=== PATIENT | female | born 1955 | race Two or more races ===

== ENCOUNTER 2023-08-11 13:12 | Inpatient (IN) | payer BC ==
[~2023-08-11] VITALS: Ht 165.1 cm; Wt 65.0 kg
[2023-08-11] MEDS ORDERED: IPRATROPIUM BROM 0.5 MG/2.5ML INH SOL HHN ONE (13:45)
[2023-08-11] MEDS ORDERED: ALBUTEROL SULF 2.5 MG/0.5ML(0.5%) NEB SOLN HHN ONE (13:45)
[2023-08-11 14:23] LABS: Basophils # (auto) 0 10 ^3/uL (0-0.2); Basophils % (auto) 0.2 % (0.0-2.0); Eosinophils # (auto) 0.2 10 ^3/uL (0-0.8); Eosinophils % (auto) 3.2 % (0.0-7.0); Hematocrit 41.5 % (36.0-46.0); Hemoglobin 13.8 g/dL (12.2-16.2); Lymphocytes # (auto) 0.8 10 ^3/uL (0.4-5.4); Lymphocytes % (auto) 15.3 % (10.0-50.0); Mean Corpuscular Hemoglobin 30.8 pg (28.0-32.0); Mean Corpuscular Hgb Conc. 33.1 g/dL (32.0-36.0); Mean Corpuscular Volume 92.9 fL (80.0-100.0); Monocytes # (auto) 0.4 10 ^3/uL (0-1.3); Monocytes % (auto) 8.2 % (0.0-12.0); Neutrophils # (auto) 3.9 10 ^3/uL (1.6-8.6); Neutrophils % (auto) 73.1 % (37.0-80.0); Red Blood Cells 4.47 10^6/uL (4.0-5.20); Red Cell Distribution Width 13.4 % (11.8-14.3); White Blood Cell 5.3 10^3/uL (4.4-10.8)
[2023-08-11 15:00] LABS: Alanine Aminotransferase 14 U/L (7-40); Albumin 4.5 g/dL (3.2-4.8); Alkaline Phosphatase 120 U/L (46-116); Anion Gap 2 (5-15); Aspartate Aminotransferase 13 U/L (13-40); BUN/Creatinine Ratio 18.6 (10.0-20.0); Blood Urea Nitrogen 13 mg/dL (9-23); Calcium 9.6 mg/dL (8.5-10.1); Carbon Dioxide 34 mmol/L (20-30); Chloride 97 mmol/L (98-107); Glucose 105 mg/dL (74-106); Potassium 4.6 mmol/L (3.5-5.1); Sodium 133 mmol/L (136-145)
[2023-08-11 15:01] LABS: Bilirubin, Total 0.2 mg/dL (0.2-1.0); Total Protein 6.5 g/dL (5.7-8.2)
[2023-08-11] MEDS: FUROSEMIDE 40 MG/4 ML VIAL IV ONE (15:10)
[2023-08-11] MEDS: methylPREDNISolone SOD SUCC 125 MG/2 ML VL IV ONE (15:12)
[2023-08-11 16:14] LABS: Magnesium 1.9 mg/dL (1.6-2.6)
[2023-08-11 16:21] LABS: COVID19 ANTIGEN SOFIA FIA NEGATIVE (NEGATIVE)
[2023-08-11] MEDS ORDERED: FURO40TA4 PO (17:40)
[2023-08-11] MEDS ORDERED: LISI10TA34 PO (17:40)
[2023-08-11] MEDS ORDERED: ATOR40TA52 PO (17:40)
[2023-08-11] MEDS: THIAMINE HCL 100 MG TAB PO ONE (17:45)
[2023-08-11] MEDS: PANTOPRAZOLE 40 MG TAB PO ONE (17:45)
[2023-08-11] MEDS ORDERED: ONDANSETRON HCL 4 MG/2 ML VIAL IV PRN (17:45)
[2023-08-11] MEDS: FOLIC ACID 1 MG TAB PO ONE (17:45)
[2023-08-11] MEDS ORDERED: MORPHINE SULFATE INJ 2 MG/ml SYRG IV PRN (17:45)
[2023-08-11] MEDS ORDERED: DOCUSATE SOD 100 MG CAP PO PRN (17:45)
[2023-08-11] MEDS: MULTIPLE VITAMIN TAB PO ONE (17:45)
[2023-08-11] MEDS ORDERED: ACETAMINOPHEN 325 MG TAB PO PRN (17:45)
[2023-08-11 18:50] VITALS: BP 111/75; TEMP 98
[2023-08-11] MEDS: LORazepam 2MG/ML-1ML VIAL IV PRN (18:55)
[2023-08-11 18:57] VITALS: PULSE 112; RESP 20; O2SAT 92
[2023-08-11] MEDS: IPRATROPIUM BROM 0.5 MG/2.5ML INH SOL NEB SCH (18:57)
[2023-08-11] MEDS: ALBUTEROL SULF 2.5 MG/0.5ML(0.5%) NEB SOLN NEB SCH (18:57)
[2023-08-11] MEDS: HYDROcodone-ACET 5/325MG TAB PO PRN (19:02)
[2023-08-11 19:07] VITALS: PULSE 111; RESP 20; O2SAT 99
[2023-08-11] MEDS ORDERED: methylPREDNISolone SOD SUCC 40 MG/ML VL IV SCH (22:00)
[2023-08-12] MEDS ORDERED: THIAMINE HCL 100 MG TAB PO SCH (10:00)
[2023-08-12] MEDS ORDERED: ENOXAPARIN SOD 40 MG/0.4 ML SYRINGE SC SCH (10:00)
[2023-08-12] MEDS ORDERED: MULTIPLE VITAMIN TAB PO SCH (10:00)
[2023-08-12] MEDS ORDERED: FUROSEMIDE 40 MG TAB PO SCH (10:00)
[2023-08-12] MEDS ORDERED: FOLIC ACID 1 MG TAB PO SCH (10:00)
[2023-08-12] MEDS ORDERED: PANTOPRAZOLE 40 MG TAB PO SCH (10:00)
[2023-08-12] MEDS ORDERED: ATORVASTATIN 20 MG TAB PO SCH (10:00)
[2023-08-12] MEDS ORDERED: LISINOPRIL 5 MG TAB PO SCH (10:00)
[2023-08-12] MEDS ORDERED: levoFLOXacin 750MG 150 ML IV SCH (18:00)
== END 2023-08-11 20:13 | disposition left against medical advice (07) | DRG 189 ==
LOC: ER 13:12 → OVERFLOW 17:40
PROVIDERS: ADMIT Nurse Practitioner Family; ATTEND Nurse Practitioner Family
DX: J96.20 Acute and chronic respiratory failure, unspecified whether with hypoxia or hypercapnia (principal); J44.1 Chronic obstructive pulmonary disease with (acute) exacerbation; F17.290 Nicotine dependence, other tobacco product, uncomplicated; Z96.642 Presence of left artificial hip joint; F15.10 Other stimulant abuse, uncomplicated; I50.9 Heart failure, unspecified; I11.0 Hypertensive heart disease with heart failure; F10.10 Alcohol abuse, uncomplicated; Z53.29 Procedure and treatment not carried out because of patient's decision for other reasons; Y90.9 Presence of alcohol in blood, level not specified; Z20.822 Contact with and (suspected) exposure to COVID-19; E78.5 Hyperlipidemia, unspecified; F41.9 Anxiety disorder, unspecified; Z83.3 Family history of diabetes mellitus; Z99.81 Dependence on supplemental oxygen; Z86.73 Personal history of transient ischemic attack (TIA), and cerebral infarction without residual deficits; Z87.01 Personal history of pneumonia (recurrent)
CPT/HCPCS: 36415; 71045; 80053; 83605; 83735; 83880; 84484; 85025; 87040; 87426; 93005; 94640; 99291; G0378

== ENCOUNTER 2023-11-12 00:06 | Emergency (ER) | payer BC, OTHER ==
[~2023-11-12] VITALS: Ht 167.6 cm; Wt 73.0 kg
[~2023-11-12 00:06] MED LIST: ATOR40TA52 PO; FURO40TA4 PO; LISI10TA34 PO
[2023-11-12 01:23] LABS: Basophils # (auto) 0 10 ^3/uL (0-0.2); Basophils % (auto) 0.5 % (0.0-2.0); Eosinophils # (auto) 0.3 10 ^3/uL (0-0.8); Eosinophils % (auto) 4.4 % (0.0-7.0); Hematocrit 36.9 % (36.0-46.0); Hemoglobin 12.5 g/dL (12.2-16.2); Lymphocytes # (auto) 1.5 10 ^3/uL (0.4-5.4); Lymphocytes % (auto) 25.7 % (10.0-50.0); Mean Corpuscular Hemoglobin 32.1 pg (28.0-32.0); Mean Corpuscular Volume 94.4 fL (80.0-100.0); Monocytes # (auto) 0.6 10 ^3/uL (0-1.3); Monocytes % (auto) 9.7 % (0.0-12.0); Neutrophils # (auto) 3.4 10 ^3/uL (1.6-8.6); Neutrophils % (auto) 59.7 % (37.0-80.0); Red Blood Cells 3.91 10^6/uL (4.0-5.20); White Blood Cell 5.7 10^3/uL (4.4-10.8)
[2023-11-12 01:38] LABS: Alanine Aminotransferase 13 U/L (7-40); Albumin 4.2 g/dL (3.2-4.8); Alkaline Phosphatase 73 U/L (46-116); Anion Gap 6 (5-15); Aspartate Aminotransferase 13 U/L (13-40); BUN/Creatinine Ratio 13.7 (10.0-20.0); Blood Urea Nitrogen 10 mg/dL (9-23); Calcium 9.8 mg/dL (8.7-10.4); Carbon Dioxide 28 mmol/L (20-30); Chloride 99 mmol/L (98-107); Glucose 115 mg/dL (74-106); Potassium 3.4 mmol/L (3.5-5.1); Sodium 133 mmol/L (136-145)
[2023-11-12 01:39] LABS: Bilirubin, Total 0.2 mg/dL (0.2-1.0); Total Protein 6.6 g/dL (5.7-8.2)
[2023-11-12 01:48] LABS: INR 0.97 (0.9-1.15); Partial Thromboplastin Time 28.7 SEC (24.5-34.5); Prothrombin Time 10.3 sec (9.3-11.8)
[2023-11-12] MEDS ORDERED: SODIENE35 RE (02:13)
[2023-11-12] MEDS ORDERED: MOMLQ PO (02:23)
[2023-11-12] MEDS ORDERED: DOCU-94 PO (02:23)
[2023-11-12 02:49] VITALS: BP 133/82; TEMP 97.8
[2023-11-12 02:51] VITALS: PULSE 80; RESP 20; O2SAT 97
== END 2023-11-12 03:04 | disposition home or self-care (01) ==
LOC: ER 00:06
DX: K59.00 Constipation, unspecified (principal); I11.0 Hypertensive heart disease with heart failure; I50.9 Heart failure, unspecified; E78.5 Hyperlipidemia, unspecified; J44.9 Chronic obstructive pulmonary disease, unspecified; F17.290 Nicotine dependence, other tobacco product, uncomplicated; Z86.73 Personal history of transient ischemic attack (TIA), and cerebral infarction without residual deficits
CPT/HCPCS: 36415; 74176; 80053; 83605; 85025; 85610; 85730; 86850; 86900; 86901; 87040

== ENCOUNTER 2024-04-30 20:56 | Emergency (ER) | payer BC, MEDICAID ==
[~2024-04-30] VITALS: Ht 165.1 cm; Wt 54.0 kg
[~2024-04-30 20:56] MED LIST changes: +DOCU-94 PO; +MOMLQ PO; +SODIENE35 RE
[2024-04-30 21:37] LABS: Basophils # (auto) 0 10 ^3/uL (0-0.2); Basophils % (auto) 0.7 % (0.0-2.0); Eosinophils # (auto) 0.2 10 ^3/uL (0-0.8); Eosinophils % (auto) 3.9 % (0.0-7.0); Hemoglobin 12.9 g/dL (12.2-16.2); Lymphocytes # (auto) 0.8 10 ^3/uL (0.4-5.4); Lymphocytes % (auto) 19.1 % (10.0-50.0); Mean Corpuscular Hemoglobin 31.5 pg (28.0-32.0); Mean Corpuscular Volume 95.5 fL (80.0-100.0); Monocytes # (auto) 0.4 10 ^3/uL (0-1.3); Monocytes % (auto) 9.9 % (0.0-12.0); Neutrophils # (auto) 2.9 10 ^3/uL (1.6-8.6); Neutrophils % (auto) 66.4 % (37.0-80.0); Platelet Count (auto) 275 10^3/uL (140-450); Red Blood Cells 4.09 10^6/uL (4.0-5.20); Red Cell Distribution Width 13.7 % (11.8-14.3); White Blood Cell 4.3 10^3/uL (4.4-10.8)
[2024-04-30 21:53] LABS: Alanine Aminotransferase 16 U/L (7-40); Albumin 4.6 g/dL (3.2-4.8); Alkaline Phosphatase 105 U/L (46-116); Anion Gap 9 (5-15); Aspartate Aminotransferase 18 U/L (13-40); BUN/Creatinine Ratio 12.5 (10.0-20.0); Blood Urea Nitrogen 10 mg/dL (9-23); Carbon Dioxide 27 mmol/L (20-31); Chloride 99 mmol/L (98-107); Potassium 3.8 mmol/L (3.5-5.1)
[2024-04-30 21:54] LABS: Total Protein 7.3 g/dL (5.7-8.2)
[2024-04-30 21:55] LABS: Bilirubin, Total 0.3 mg/dL (0.2-1.0)
[2024-04-30 21:59] LABS: Calcium 10.5 mg/dL (8.7-10.4); Glucose 110 mg/dL (74-106); Sodium 135 mmol/L (136-145)
[2024-04-30 22:19] LABS: Lipase 33 U/L (12-53)
--- NOTE | 2024-04-30 22:36 | DVH ---
Exam: XY KUB ABDOMEN SINGLE VIEW Indication: Constipation Comparison: None Technique: Single AP view of the abdomen Findings: There are bilateral intramedullary nails and dynamic hip screws in the visualized proximal femurs wit h the visualized components of the hardware are intact. There is bony demineralization. There is mult ilevel lumbar spondylosis. Mild right convexity scoliosis of the lumbar spine Scattered gas throughout nondilated small and large bowel. Moderate retained stool in the colon. Robison rgical clips project over the left abdomen. There is blunting of the right costophrenic angle Impression: 1. No evidence of bowel obstruction. 2. Moderate retained stool in the colon concordant with constipation. 3. Blunting of the right costophrenic angle which could reflect pleural scarring or pleural effusion
[2024-05-01] MEDS ORDERED: LACT10SO3 PO (02:12)
[2024-05-01] MEDS ORDERED: DOCU-94 PO (02:12)
--- NOTE | 2024-05-01 02:12 | ED.PDOC ---
GI ASSESSMENT HPI Comments This is a 68-year-old female who arrives to the ED today via EMS with complaints severe constipation for the past month. Patient states she has not had a bowel movement in at least four weeks. Patient attests to narcotic use and alcohol abuse. Patient denies any fever nausea or vomiting. Patient was tachycardic and hypertensive on arrival. Chief Complaint: Constipation Time Seen by MD: 21:02 Reviewed Notes: Nurses Notes, Tissue Specialist Notes Allergies: Coded Allergies: NO KNOWN ALLERGIES (Unverified , 08/11/23) Home Meds Active Scripts Magnesium Hydroxide (MILK OF MAGNESIA ORAL SUSPENSION) 30 Ml Ss, 30 ML PO BID for 5 Days, #300 ML Prov:ESTEPHANIA AMARO [facility] 11/12/23 Docusate Sodium (Colace) 100 Mg Cap, 1 CAP PO BID, #30 CAP Prov:ESTEPHANIA AMARO [facility] 11/12/23 Sodium Phosphates (FLEET ENEMA SIX PACK) Enema Janet, 1 EA RE DAILY, #1 EA Prov:ESTEPHANIA AMARO [facility] 11/12/23 Reported Medications Atorvastatin Calcium (ATORVASTATIN CALCIUM) 40 Mg Tab, 1 TAB PO DAILY 08/11/23 Furosemide (Furosemide) 40 Mg Tab, 1 TAB PO DAILY 08/11/23 Lisinopril (Lisinopril) 10 Mg Tab, 1 TAB PO DAILY 08/11/23 Information Source: Patient, Emergency Med Personnel Mode of Arrival: EMS Timing: Weeks Duration: Since onset Prehospital treatment: None Quality: Cramping, Sharp Severity: Moderate Recent: Other (Alcohol and narcotic drug use and abuse) Recent Hx of: Narcotic Use Pain Location: Diffuse, Epigastric, Periumbilical Associated sign and symptoms: Constipation Past Medical History PAST MEDICAL HISTORY: CHF, COPD, High Lipids, HTN, TIA Surgical History: Denies all 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 Family History Family History: Family hx of DM, Family hx of Cancer, Family hx of heart ana Social History Smoker: Other Alcohol: Heavy Drugs: Denies Drug Use Lives In: Home Constitutional: denies: chills, diaphoresis, fatigue, fever, malaise, sweats, weakness, others EENTM: denies: blurred vision, double vision, ear bleeding, ear discharge, ear drainage, ear pain, ear ringing, eye pain, eye redness, hearing loss, mouth pain, mouth swelling, nasal discharge, nose bleeding, nose congestion, nose pain, photophobia, tearing, throat pain, throat swelling, voice changes, others Respiratory: denies: cough, hemoptysis, orthopnea, SOB at rest, shortness of breath, SOB with excertion, stridor, wheezing, others Cardiovascular: denies: chest pain, dizzy spells, diaphoresis, Dyspnea on exertion, edema, irregular heart beat, left arm pain, lightheadedness, palpitations, PND, syncope, others Gastrointestinal: reports: constipated; denies: abdomen distended, abdominal pain, blood streaked bowels, diarrhea, dysphagia, difficulty swallowing, hematemesis, melena, nausea, poor appetite, poor fluid intake, rectal bleeding, rectal pain, vomiting, others Genitourinary: denies: abnormal vagina bleeding, burning, dyspareunia, dysuria, flank pain, frequency, hematuria, incontinence, pain, , vagina discharge, urgency, others Neurological: denies: dizziness, fainting, headache, left sided numbness, left sided weakness, numbness, paresthesia, pre-existing deficit, right sided numbness, right sided weakness, seizure, speech problems, tingling, tremors, weakness, others Musculoskeletal: denies: back pain, gout, joint pain, joint swelling, muscle pain, muscle stiffness, neck pain, others Integumetry: denies: bruises, change in color, change in hair/nails, dryness, laceration, lesions, lumps, rash, wounds, others Allergic/Immunocompromised: denies: Difficulty Healing, Frequent Infections, Hives, Itching, others Hematologic/Lymphatic: denies: anemia, blood clots, easy bleeding, easy bruising, swollen glands, others Endocrine: denies: excessive hunger, excessive sweating, excessive thirst, excessive urination, flushing, intolerance to cold, intolerance to heat, unexplained weight gain, unexplained weight loss, others Psychiatric: denies: anxiety, bipolar disorder, depression, hopeless, panic disorder, schizophrenia, sleepless, suicidal, others Physical Exam General Appearance: Moderate Distress (Patient is in [id number] pain due to constipation concerns, but patient is intoxicated and inebriated at time of evaluation.), Normal HEENT: Normal ENT Inspection, Pharynx Normal, TMs Normal Neck: Full Range of Motion, Non-Tender, Normal, Normal Inspection Respiratory: Chest Non-Tender, Lungs Clear, No Accessory Muscle Use, No Respiratory Distress, Normal Breath Sounds Cardiovascular: No Edema, No JVD, No Murmur, No Gallop, Normal Peripheral Pulses, Regular Rate/Rhythm Breast Exam: Deferred Gastrointestinal: Other (Diffuse periumbilical tenderness to palpation bilaterally. No pulsatile masses. Abdomen was only mildly rigid.) Genitalia: Deferred Pelvic: Deferred Rectal: Deferred Extremities: No calf tenderness, Normal capillary refill, Normal inspection, Normal range of motion, Non-tender, No pedal edema Neurologic: Alert, millwright II-XII nml as Tested, No Motor Deficits, Normal Affect, Normal Mood, No Sensory Deficits Cerebellar Function: Normal Reflexes: Normal Skin: Dry, Normal Color, Warm Lymphatic: No Adenopathy Was a procedure done? Was a procedure done?: No GI differential Dx Differential Diagnosis: Bowel Obstruction, Constipation X-Ray, Labs, Meds, VS Vital Signs Date Time Temp Pulse Resp B/P (MAP) Pulse Ox O2 Delivery O2 Flow Rate FiO2 04/30/24 21:00 91 04/30/24 21:00 98.1 102 24 161/87 (111) 97 Lab Test 04/30/24 21:20 Range/Units White Blood Count 4.3 L 4.4-10.8 10^3/uL Red Blood Count 4.09 4.0-5.20 10^6/uL Hemoglobin 12.9 12.2-16.2 g/dL Hematocrit 39.0 36.0-46.0 % Mean Corpuscular Volume 95.5 80.0-100.0 fL Mean Corpuscular Hemoglobin 31.5 28.0-32.0 pg Mean Corpuscular Hemoglobin Concent 33.0 32.0-36.0 g/dL Red Cell Distribution Width 13.7 11.8-14.3 % Platelet Count 275 140-450 10^3/uL Mean Platelet Volume 6.9 6.9-10.8 fL Neutrophils (%) (Auto) 66.4 37.0-80.0 % Lymphocytes (%) (Auto) 19.1 10.0-50.0 % Monocytes (%) (Auto) 9.9 0.0-12.0 % Eosinophils (%) (Auto) 3.9 0.0-7.0 % Basophils (%) (Auto) 0.7 0.0-2.0 % Neutrophils # (Auto) 2.9 1.6-8.6 10 ^3/uL Lymphocytes # (Auto) 0.8 0.4-5.4 10 ^3/uL Monocytes # (Auto) 0.4 0-1.3 10 ^3/uL Eosinophils # (Auto) 0.2 0-0.8 10 ^3/uL Basophils # (Auto) 0 0-0.2 10 ^3/uL Nucleated Red Blood Cells 0.0 % Sodium Level 135 L 136-145 mmol/L Potassium Level 3.8 3.5-5.1 mmol/L Chloride Level 99 98-107 mmol/L Carbon Dioxide Level 27 20-31 mmol/L Anion Gap 9 5-15 Blood Urea Nitrogen 10 9-23 mg/dL Creatinine 0.80 0.550-1.02 mg/dL Glomerular Filtration Rate Calc 80 >90 mL/min BUN/Creatinine Ratio 12.5 10.0-20.0 Serum Glucose 110 H 74-106 mg/dL Lactic Acid Level 0.8 0.4-2.0 mmol/L Calcium Level 10.5 H 8.7-10.4 mg/dL Total Bilirubin 0.3 0.2-1.0 mg/dL Aspartate Amino Transferase (AST) 18 13-40 U/L Alanine Aminotransferase (ALT) 16 7-40 U/L Alkaline Phosphatase 105 46-116 U/L Troponin I High Sensitivity < 3 L </=34 ng/L B-Type Natriuretic Peptide 34.18 0-100 pg/mL Total Protein 7.3 5.7-8.2 g/dL Albumin 4.6 3.2-4.8 g/dL Lipase 33 12-53 U/L X-Ray, Labs, Meds, VS Comment All studies performed the ED were evaluated by me personally. Imaging studies of the abdomen were unremarkable for any small bowel obstruction, but did confirm a moderate stool burden. Patient will be given lactulose until she passes copious stool and patient has been advised to utilize medication at home until she establishes a good bowel pattern. Spent 10 minutes but the patient discussing alcohol and prescription drug abuse. Advised follow up with a treatment program such as [facility] or [facility] for continued help. Time of 1ST Reevaluation: 02:10 Reevaluation 1ST: Improved Consultation: PCP, Other ([facility] and [facility]) Patient Education/Counseling: Diagnosis, Treatment Family Education/Counseling: Diagnosis, Treatment Departure 1 Departure Time of Disposition: 02:11 Impression: Primary Impression: Constipation Disposition: HOME / SELF CARE / HOMELESS Condition: Stable Additional Instructions: Advised patient utilize medication as needed as well as until she establishes a healthy bowel pattern. Patient should follow up with a alcohol and prescription dog aversion program. e-Prescriptions Docusate Sodium (Colace) 100 Mg Cap 1 CAP PO BID, #30 CAP Prov: RD BOOTH PAC 05/01/24 Lactulose (Lactulose) 10 Gm/15 Ml Shayna 10 GM PO Q6HP PRN, #200 ML Prov: RD BOOTH PAC 05/01/24 Discharged With: Self, Friend Critical Care Note Critical Care Time?: No Stability Stability form required: No Heart Score Heart Score: Heart Score Response (Comments) Value History N/A 0 EKG N/A 0 Age N/A 0 Risk Factors N/A 0 Troponin N/A [address] BOOTH PAC May 01, 2024 02:12
[2024-05-01 02:36] LABS: Urine Bacteria None Seen /hpf (None Seen)
[2024-05-01] MEDS: LACTULOSE 20Gm/30ML SOLN PO ONE (02:51)
[2024-05-01 03:26] VITALS: BP 122/60; TEMP 98.4
[2024-05-01 03:28] VITALS: PULSE 78; RESP 14; O2SAT 97
[2024-05-01 03:34] LABS: Urine Blood Negative /uL (Negative); Urine Clarity Clear (Clear); Urine Color Yellow (Yellow); Urine Mucus FEW (None Seen); Urine Protein, UAD Negative (Negative); Urine Urobilinogen Normal (Negative); Urine WBC 3 /hpf (0 - 5)
--- NOTE | 2024-05-03 14:45 | ECG ---
[facility] Test Date: 2024-04-30 Test Time: 21:00:24 Pat Name: SELWYN RAZA Department: ER Room: Gender: F Manager Of Data: ER : 1955 Requested By: RD BOOTH Order Number: [id number] Reading MD: Measurements Intervals [place] Rate: 91 P: 54 SC: 162 QRS: 51 QRSD: 96 T: 51 QT: 368 QTc: 453 Interpretive Statements Sinus rhythm Minimal ST elevation, anterior leads Baseline wander in lead(s) V5 Please click the below link to view image of tracing.
== END 2024-05-01 13:23 | disposition home or self-care (01) ==
LOC: EDBD 20:56 → ER 20:56
DX: K59.00 Constipation, unspecified (principal); I11.0 Hypertensive heart disease with heart failure; I50.9 Heart failure, unspecified; J44.9 Chronic obstructive pulmonary disease, unspecified; E78.5 Hyperlipidemia, unspecified; F17.200 Nicotine dependence, unspecified, uncomplicated; F10.10 Alcohol abuse, uncomplicated; Z86.73 Personal history of transient ischemic attack (TIA), and cerebral infarction without residual deficits; Z79.899 Other long term (current) drug therapy; Y90.0 Blood alcohol level of less than 20 mg/100 ml
CPT/HCPCS: 36415; 74018; 80053; 81001; 83605; 83690; 83880; 84484; 85025; 93005

== ENCOUNTER 2024-07-26 17:12 | Inpatient (IN) | payer MEDICARE, MEDICAID ==
[~2024-07-26] VITALS: Ht 170.2 cm; Wt 68.0 kg
[~2024-07-26 17:12] MED LIST changes: +LACT10SO3 PO
[2024-07-26 21:01] LABS: Basophils # (auto) 0 10 ^3/uL (0-0.2); Basophils % (auto) 0.7 % (0.0-2.0); Eosinophils # (auto) 0.2 10 ^3/uL (0-0.8); Eosinophils % (auto) 5.3 % (0.0-7.0); Hematocrit 37.9 % (36.0-46.0); Hemoglobin 12.8 g/dL (12.2-16.2); Lymphocytes # (auto) 1.3 10 ^3/uL (0.4-5.4); Lymphocytes % (auto) 28.1 % (10.0-50.0); Mean Corpuscular Hemoglobin 32.1 pg (28.0-32.0); Mean Corpuscular Hgb Conc. 33.9 g/dL (32.0-36.0); Mean Corpuscular Volume 94.8 fL (80.0-100.0); Monocytes # (auto) 0.5 10 ^3/uL (0-1.3); Monocytes % (auto) 10.4 % (0.0-12.0); Neutrophils # (auto) 2.6 10 ^3/uL (1.6-8.6); Neutrophils % (auto) 55.5 % (37.0-80.0); Platelet Count (auto) 245 10^3/uL (140-450); Red Cell Distribution Width 12.5 % (11.8-14.3); White Blood Cell 4.7 10^3/uL (4.4-10.8)
[2024-07-26 21:17] LABS: Alanine Aminotransferase 18 U/L (7-40); Albumin 4.6 g/dL (3.2-4.8); Alkaline Phosphatase 85 U/L (46-116); Anion Gap 9 (5-15); Aspartate Aminotransferase 21 U/L (13-40); BUN/Creatinine Ratio 14.5 (10.0-20.0); Blood Alcohol 3.1 mg/dL (<10); Blood Urea Nitrogen 11 mg/dL (9-23); Carbon Dioxide 28 mmol/L (20-31); Glucose 104 mg/dL (74-106); Total Protein 7.1 g/dL (5.7-8.2)
[2024-07-26 21:18] LABS: Bilirubin, Total 0.3 mg/dL (0.2-1.0); Chloride 97 mmol/L (98-107); Potassium 3.1 mmol/L (3.5-5.1); Salicylate < 3.0 mg/dL (-30); Sodium 134 mmol/L (136-145)
--- NOTE | 2024-07-26 21:53 | ED.PDOC ---
History of Present Illness HPI Comments 68-year-old female with a history of hypertension, dyslipidemia, CHF, COPD, GERD and neuropathy brought in by self stating she is in alcohol withdrawal and requesting help with drug and alcohol addiction. Patient states she was discharged from a hospital in [place] this morning and was slated to go to a residential rehab facility. Instead, she states I decided to come here to get some dope. She states now she is withdrawing from alcohol and currently has no place to go and is feeling depressed and hopeless. She denies feeling suicidal or homicidal. She denies any auditory or visual hallucinations. She states that she now has decided she would like to go to the residential rehab facility, however now she is feeling as if she is in alcohol and drug withdrawal, since she was unable to obtain the drugs she was looking for. Chief Complaint: General Weakness Time Seen by MD: 18:13 Primary Care Provider: NONE Reviewed Notes: Nurses Notes, Tenter Feeder Notes, Medications, Allergies Allergies: Coded Allergies: NO KNOWN ALLERGIES (Unverified , 08/11/23) Home Meds Active Scripts Docusate Sodium (Colace) 100 Mg Cap, 1 CAP PO BID, #30 CAP Prov:RD BOOTH PAC 05/01/24 Lactulose (Lactulose) 10 Gm/15 Ml Shayna, 10 GM PO Q6HP PRN, #200 ML Prov:RD BOOTH PAC 05/01/24 Magnesium Hydroxide (MILK OF MAGNESIA ORAL SUSPENSION) 30 Ml Ss, 30 ML PO BID for 5 Days, #300 ML Prov:ESTEPHANIA AMARO [facility] 11/12/23 Docusate Sodium (Colace) 100 Mg Cap, 1 CAP PO BID, #30 CAP Prov:ESTEPHANIA AMARO [facility] 11/12/23 Sodium Phosphates (FLEET ENEMA SIX PACK) Enema Janet, 1 EA RE DAILY, #1 EA Prov:ESTEPHANIA AMARO [facility] 11/12/23 Reported Medications Atorvastatin Calcium (ATORVASTATIN CALCIUM) 40 Mg Tab, 1 TAB PO DAILY 08/11/23 Furosemide (Furosemide) 40 Mg Tab, 1 TAB PO DAILY 08/11/23 Lisinopril (Lisinopril) 10 Mg Tab, 1 TAB PO DAILY 08/11/23 Information Source: Patient, Emergency Med Personnel Mode of Arrival: EMS Severity: Moderate Timing: Hours Duration: Since onset Prehospital treatment: 12 Lead EKG, Bolt Maker Past Medical History PAST MEDICAL HISTORY: Asthma, CHF, COPD, GERD, High Lipids, HTN, TIA Past Medical History (Other): neuropathy Surgical History (Other): Bilateral hip replacements, ovarian cystectomy 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, 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 Family History Family History: Family hx of DM, Family hx of Cancer, Family hx of heart ana Social History Smoker: Cigarettes, Other Alcohol: Heavy Drugs: Methamphetamine Lives In: Homeless All Other Systems: Reviewed and Negative (Comprehensive systems review obtained and negative except for what is stated in the HPI.) Physical Exam General Appearance: Mild Distress (Tearful) HEENT: PERRL/EOMI, Other (Edentulous) Neck: Full Range of Motion, Normal Inspection Respiratory: Lungs Clear, No Accessory Muscle Use, No Respiratory Distress, Normal Breath Sounds Cardiovascular: No Edema, No JVD, Regular Rate/Rhythm Breast Exam: Deferred Gastrointestinal: Non Tender, Soft Genitalia: Deferred Pelvic: Deferred Rectal: Deferred Extremities: Normal range of motion, Non-tender Neurologic: Alert (Oriented x4), Other (Depressed mood. Tearful. Tremulous. No gross focal deficit.) Cerebellar Function: NOT DONE Reflexes: NOT DONE Skin: Dry, Normal Color, Warm Lymphatic: NOT DONE Was a procedure done? Was a procedure done?: No EKG EKG : Comments Sinus rhythm, rate 88, normal WA and QRS intervals, QTC 484, normal axis, possible old anteroseptal infarct, nonspecific T change. Differential Dx Considerations may include: Alcohol withdrawal, drug withdrawal, Depression, drug/alcohol intoxication/abuse, electrolyte imbalance, among others X-Ray, Labs, Meds, VS Vital Signs Date Time Temp Pulse Resp B/P (MAP) Pulse Ox O2 Delivery O2 Flow Rate FiO2 07/26/24 17:27 98.7 110 16 119/81 (94) 97 07/26/24 17:22 88 Lab Test 07/26/24 20:45 Range/Units White Blood Count 4.7 4.4-10.8 10^3/uL Red Blood Count 4.00 4.0-5.20 10^6/uL Hemoglobin 12.8 12.2-16.2 g/dL Hematocrit 37.9 36.0-46.0 % Mean Corpuscular Volume 94.8 80.0-100.0 fL Mean Corpuscular Hemoglobin 32.1 H 28.0-32.0 pg Mean Corpuscular Hemoglobin Concent 33.9 32.0-36.0 g/dL Red Cell Distribution Width 12.5 11.8-14.3 % Platelet Count 245 140-450 10^3/uL Mean Platelet Volume 7.6 6.9-10.8 fL Neutrophils (%) (Auto) 55.5 37.0-80.0 % Lymphocytes (%) (Auto) 28.1 10.0-50.0 % Monocytes (%) (Auto) 10.4 0.0-12.0 % Eosinophils (%) (Auto) 5.3 0.0-7.0 % Basophils (%) (Auto) 0.7 0.0-2.0 % Neutrophils # (Auto) 2.6 1.6-8.6 10 ^3/uL Lymphocytes # (Auto) 1.3 0.4-5.4 10 ^3/uL Monocytes # (Auto) 0.5 0-1.3 10 ^3/uL Eosinophils # (Auto) 0.2 0-0.8 10 ^3/uL Basophils # (Auto) 0 0-0.2 10 ^3/uL Nucleated Red Blood Cells 0.0 % Sodium Level 134 L 136-145 mmol/L Potassium Level 3.1 L 3.5-5.1 mmol/L Chloride Level 97 L 98-107 mmol/L Carbon Dioxide Level 28 20-31 mmol/L Anion Gap 9 5-15 Blood Urea Nitrogen 11 9-23 mg/dL Creatinine 0.76 0.550-1.02 mg/dL Glomerular Filtration Rate Calc 85 >90 mL/min BUN/Creatinine Ratio 14.5 10.0-20.0 Serum Glucose 104 74-106 mg/dL Calcium Level 10.0 8.7-10.4 mg/dL Total Bilirubin 0.3 0.2-1.0 mg/dL Aspartate Amino Transferase (AST) 21 13-40 U/L Alanine Aminotransferase (ALT) 18 7-40 U/L Alkaline Phosphatase 85 46-116 U/L Troponin I High Sensitivity Pending B-Type Natriuretic Peptide Pending Total Protein 7.1 5.7-8.2 g/dL Albumin 4.6 3.2-4.8 g/dL Salicylates Level < 3.0 -30 mg/dL Acetaminophen Level 5.0 L 10.0-20.0 UG/ML Plasma/Serum Blood Alcohol 3.1 <10 mg/dL PROCEDURE(s): CXR1 - CHEST XRAY 1 VIEW REASON: withdrawal ORDER NUMBER(s): [id number], ACCESSION NUMBER(s): [id number] CHEST RADIOGRAPH Indication: withdrawal Technique: Single frontal view of the chest was obtained Comparison: XY CHEST XRAY 1 VIEW on DOS: 08/11/23 FINDINGS: Lines and Tubes: None Lungs: Increased tissue density right lower lung field. Unchanged from 08/11/2023. This may represent soft tissue density from the right breast. Pleura: No effusion. No pneumothorax. Cardiomediastinal contours: Unremarkable Bones: No acute osseous abnormality. IMPRESSION: 1. No significant change from 08/11/2023 X-Ray, Labs, Meds, VS Comment 68-year-old female with a history of hypertension, dyslipidemia, CHF, COPD, GERD and neuropathy brought in by self stating she is in alcohol withdrawal Vitals remarkable for heart rate 110 Exam remarkable for depressed mood, tearful, tremulous Rhythm strip independently interpreted by me: Sinus rhythm, rate 88, no ectopy. Chest x-ray IMPRESSION: 1. No significant change from 08/11/2023 CBC unremarkable, metabolic panel remarkable for sodium 134, potassium 3.1, chloride 97, Tylenol and salicylate levels negative, ETOH 3.1, UA and urine drug screen pending Patient treated with the following in the ED: Ativan 1 mg IV, Librium 50 mg p.o., effervescent potassium 50 mEq p.o. On re-evaluation, patient is no longer tremulous, vitals are stable. Plan is to admit the patient for alcohol withdrawal and eventual rehab facility placement. Time of 1ST Reevaluation: 18:43 Reevaluation 1ST: Unchanged Patient Education/Counseling: Diagnosis, Treatment Family Education/Counseling: No Family Present Departure 1 Departure Time of Disposition: 22:32 Impression: Primary Impression: Alcohol withdrawal Qualified Codes: F10.939 - Alcohol use, unspecified with withdrawal, unspecified Additional Impression: Electrolyte imbalance Disposition: ADMITTED INPATIENT Admit to: Med Surg Condition: Guarded Critical Care Note Critical Care Time?: No Stability Stability form required: No Heart Score Heart Score: Heart Score Response (Comments) Value History N/A 0 EKG N/A 0 Age N/A 0 Risk Factors N/A 0 Troponin N/A 0 Total 0 I personally scribed for BIPIN LI MD ([email or web address]) on 07/26/24 at 22:07. Electronically submitted by Jono Angeles ([email or web address]). BIPIN LI MD Jul 26, 2024 21:53
--- NOTE | 2024-07-26 22:20 | DVH ---
CHEST RADIOGRAPH Indication: withdrawal Technique: Single frontal view of the chest was obtained Comparison: XY CHEST XRAY 1 VIEW on DOS: 08/11/23 FINDINGS: Lines and Tubes: None Lungs: Increased tissue density right lower lung field. Unchanged from 08/11/2023. This may represent soft tissue density from the right breast. Pleura: No effusion. No pneumothorax. Cardiomediastinal contours: Unremarkable Bones: No acute osseous abnormality. IMPRESSION: 1. No significant change from 08/11/2023
[2024-07-26] MEDS ORDERED: MORPHINE SULFATE INJ 2 MG/ml SYRG IV PRN (23:15)
[2024-07-26] MEDS ORDERED: ACETAMINOPHEN 325 MG TAB PO PRN (23:15)
[2024-07-26] MEDS: FOLIC ACID 1 MG in D5W 5% 50 ML INJ ONE (23:15)
[2024-07-26] MEDS: SODIUM CHLORIDE 0.9% 1,000 ML IV SCH (23:15)
[2024-07-26] MEDS ORDERED: NITROGLYCERIN 0.4 MG SL TAB SL PRN (23:15)
[2024-07-26] MEDS ORDERED: LORazepam 2MG/ML-1ML VIAL IV PRN (23:15)
[2024-07-26] MEDS: THIAMINE 100mg/ml INJ (200mg/2ml VIAL) IV ONE (23:15)
--- NOTE | 2024-07-26 23:50 | DVHHPRES ---
History of Present Illness Resident Creating Document: JANES XIONG RESIDENT History of Present Illness Kaya Tran 68-year-old female with history of HTN, HLD, CHF, COPD, GERD, neuropathy, bipolar, PTSD presents to the ED with the chief complaints of alcohol withdrawal for one day. Patient was reported she has been consuming alcohol and methamphetamines for long time and dried rehabilitation several attempts but unable to quit and she recently discharged from hospital in [place] this morning and was stated to go to a residential rehab facility. But patient did not went and yesterday she had 40 oz of beers 40 and from today morning she has been having headache, anxiety, nausea, vomiting, dizziness, sweating and decided to go to ED until get some help. Patient was reported current that she has no place to go and feeling depressed and hopeless but denies associated are homicidal ideations. Patient was reported her last methamphetamine abuse was one week back. PMH: HTN, HLD, CHF, COPD, GERD, neuropathy, bipolar, PTSD PSH: Bilateral hip replacements, ovarian cystectomy Family history: Noncontributory Social history: Homeless. Heavy alcohol abuse 40 on spoke today, smoking, methamphetamine abuse Allergies: No known allergy Review of Systems Constitutional: Yes: Sweats Eyes: No: Pain, Vision change, Conjunctivae inflammation, Eyelid inflammation, Other, Redness ENT: No: Ear pain, Ear discharge, Nose pain, Nose discharge, Nose congestion, Mouth pain, Mouth swelling, Throat pain, Throat swelling, Other Respiratory: No: Cough, Dry, Shortness of breath, SOB with excertion, Wheezing, Hemoptysis, Pleuritic Pain, Sputum, Wheezing, Other Cardiovascular: Edema, Lt Headedness Gastrointestinal: Nausea, Vomiting Genitourinary: No Dysuria, No Frequency, No Incontinence, No Hematuria, No Retention, No Other Musculoskeletal: No: other, neck pain, shoulder pain, arm pain, back pain, hand pain, leg pain, foot pain Skin: No: Rash, Lesions, Jaundice, Bruising, Other Neurological: Other (tremors) Allergies: Coded Allergies: NO KNOWN ALLERGIES (Unverified , 08/11/23) Medications Current Medications Medications Dose Ordered Sig/Suzette Route Start Time Stop Time Status Last Admin Dose Admin Sodium Chloride 10 ml Q8HR IV 07/27/24 06:00 UNV Sodium Chloride 1,000 ml @ 60 mls/hr [id number] IV 07/26/24 23:15 UNV Enoxaparin Sodium 40 mg DAILY SC 07/27/24 10:00 UNV Acetaminophen 650 mg Q6HP PRN PO 07/26/24 23:15 UNV Nitroglycerin 0.4 mg Q5MINP PRN SL 07/26/24 23:15 UNV Morphine Sulfate 2 mg Q30M PRN IV 07/26/24 23:15 UNV Exam Vital Signs Vital Signs Date Time Temp Pulse Resp B/P (MAP) Pulse Ox O2 Delivery O2 Flow Rate FiO2 07/26/24 17:27 98.7 110 16 119/81 (94) 97 Exam General Appearance: Anxious, moderate distress, Cooperative HEENT: Atraumatic, Mucous membranes dry Respiratory: Clear to auscultation, Normal air movement Cardiovascular: Regular rate, Normal S1, Normal S2 Abdominal: Active bowel sounds, Soft, no distention, no tenderness Extremities: Cold right lower extremity with mild gangrenous change on greater to, but palpable pulses present, trace ble edema, Normal pulses, Skin: No Significant rash, except past surgical scars Neuro: sensorimotor deficits none Psych/Mental Status: Anxious, emotional and crying Nurse was there as sharperone during examination Labs/Xrays Labs Test 07/26/24 20:45 Range/Units White Blood Count 4.7 4.4-10.8 10^3/uL Red Blood Count 4.00 4.0-5.20 10^6/uL Hemoglobin 12.8 12.2-16.2 g/dL Hematocrit 37.9 36.0-46.0 % Mean Corpuscular Volume 94.8 80.0-100.0 fL Mean Corpuscular Hemoglobin 32.1 H 28.0-32.0 pg Mean Corpuscular Hemoglobin Concent 33.9 32.0-36.0 g/dL Red Cell Distribution Width 12.5 11.8-14.3 % Platelet Count 245 140-450 10^3/uL Mean Platelet Volume 7.6 6.9-10.8 fL Neutrophils (%) (Auto) 55.5 37.0-80.0 % Lymphocytes (%) (Auto) 28.1 10.0-50.0 % Monocytes (%) (Auto) 10.4 0.0-12.0 % Eosinophils (%) (Auto) 5.3 0.0-7.0 % Basophils (%) (Auto) 0.7 0.0-2.0 % Neutrophils # (Auto) 2.6 1.6-8.6 10 ^3/uL Lymphocytes # (Auto) 1.3 0.4-5.4 10 ^3/uL Monocytes # (Auto) 0.5 0-1.3 10 ^3/uL Eosinophils # (Auto) 0.2 0-0.8 10 ^3/uL Basophils # (Auto) 0 0-0.2 10 ^3/uL Nucleated Red Blood Cells 0.0 % Sodium Level 134 L 136-145 mmol/L Potassium Level 3.1 L 3.5-5.1 mmol/L Chloride Level 97 L 98-107 mmol/L Carbon Dioxide Level 28 20-31 mmol/L Anion Gap 9 5-15 Blood Urea Nitrogen 11 9-23 mg/dL Creatinine 0.76 0.550-1.02 mg/dL Glomerular Filtration Rate Calc 85 >90 mL/min BUN/Creatinine Ratio 14.5 10.0-20.0 Serum Glucose 104 74-106 mg/dL Calcium Level 10.0 8.7-10.4 mg/dL Total Bilirubin 0.3 0.2-1.0 mg/dL Aspartate Amino Transferase (AST) 21 13-40 U/L Alanine Aminotransferase (ALT) 18 7-40 U/L Alkaline Phosphatase 85 46-116 U/L Troponin I High Sensitivity 6 </=34 ng/L B-Type Natriuretic Peptide 20.86 0-100 pg/mL Total Protein 7.1 5.7-8.2 g/dL Albumin 4.6 3.2-4.8 g/dL Salicylates Level < 3.0 -30 mg/dL Acetaminophen Level 5.0 L 10.0-20.0 UG/ML Plasma/Serum Blood Alcohol 3.1 <10 mg/dL Assessment/Plan Assessment/Plan # acute alcohol withdrawal # alcohol abuse disorder -CIWA score 13 -Librium protocol ordered -seizures precautions -closely monitor the patient -patient needs sitter -banana bag -social director of casework services for rehabilitation # methamphetamine abuse disorder -counseled regarding cessation for more than 17 minutes -patient is willing to go rehabilitation # Hypokalemia - Repleting - Monitor lab # possible PAD -ordered arterial duplex # bipolar and PTSD -no suicidal or homicidal ideations for now -closely watch # acute vs chronic systolic VS diastolic CHF -ordered BNP and echocardiogram # COPD likely not in exacerbation # GERD - Protonix Protonix Lovenox NPO Goals of care discussed with the patient for more than 27 minutes: Full code status Case discussed with Dr. Salas, patient and Plan discussed with: Patient My Orders Orders - JANES XIONG RESIDENT Procedure Category Date Status Time Admit ADMIT 07/26/24 Transmitted 23:11 Allergies ANGÉLICA 07/26/24 In Process 23:11 Code Status CODE 07/26/24 Transmitted 23:11 Sodium Chloride Lock PHA 07/27/24 In Process (Saline Lock Ns) 06:00 Sodium Chloride 0.9% PHA 07/26/24 In Process 23:15 Enoxaparin Sodium PHA 07/27/24 In Process (Lovenox) 10:00 Complete Blood Count LAB 07/27/24 Verified 04:00 Comprehensive LAB 07/27/24 Verified Metabolic Panel 04:00 Npo (Nothing By DIET 07/27/24 Transmitted Mouth) Diet Breakfast Echo 2d Mode Cardiac US 07/26/24 Logged DOP 23:11 Condition: Fair ANGÉLICA 07/26/24 In Process 23:11 Acetaminophen Tablet PHA 07/26/24 In Process (Tylenol Tablet) 23:15 Nitroglycerin PHA 07/26/24 In Process Sublingual (Ntrostat 23:15 Morphine Sulfate PHA 07/26/24 In Process Injection 23:15 Oxygen By Nasal RT 07/26/24 Transmitted Cannula 23:11 Stat Ekg For Chest ANGÉLICA 07/26/24 In Process Pain 23:11 Notify Of Changes ANGÉLICA 07/26/24 In Process From Base 23:11 Bilat Low Ext Art US 07/26/24 Taken Duplex 23:11 Ammonia LAB 07/26/24 Logged 23:11 Covid19 Antigen Beth LAB 07/26/24 Logged Hemoglobin A1c LAB 07/26/24 In Process 23:11 Lactic Acid W/ Reflex LAB 07/26/24 Logged Order 23:11 PTPTT LAB 07/26/24 In Process 23:11 Magnesium LAB 07/26/24 In Process 23:11 Rapid Influenza A&B LAB 07/26/24 Logged 23:11 Thyroid Stimulating LAB 07/26/24 In Process Hormone 23:11 Folic Acid... PHA 07/27/24 In Process 18:00 Chlordiazepoxide Hcl PHA 07/26/24 In Process Capsule (Librium Ca 23:15 Chlordiazepoxide Hcl PHA 07/27/24 In Process Capsule (Librium Ca 10:00 Chlordiazepoxide Hcl PHA 07/28/24 In Process Capsule (Librium Ca 10:00 Chlordiazepoxide Hcl PHA 07/29/24 In Process Capsule (Librium Ca 07:00 Lorazepam 2mg/Ml Inj PHA 07/26/24 In Process (Ativan Inj) 23:15 * Environmental Field Services Technician CONS 07/26/24 Transmitted Consult Date of Service: Jul 26, 2024 Billing Provider: YOLANDE SALAS MD Common Visit Codes: 94814-[id number] INP/OBS CARE (HIGH) Secondary Visit Codes: [id number] CARE PLAN 30 MINUTES JANES XIONG RESIDENT Jul 26, 2024 23:50 YOLANDE SALAS MD Jul 27, 2024 10:15
[2024-07-26 23:57] LABS: Partial Thromboplastin Time 29.4 SEC (24.5-34.5); Prothrombin Time 10.6 sec (9.3-11.8)
--- NOTE | 2024-07-27 00:12 | DVH ---
Bilateral Lower Extremity Arterial Duplex Clinical History: Possible PAD Comparison: None Technique: Duplex Doppler evaluation including color Doppler and spectral/pulsed waveform analysis of the lower extremity arteries was performed. Findings: RIGHT: Peak systolic velocities are as follows: MIXER AND BLENDER 50 cm/s SFA proximal 74 cm/s SFA mid-portion 60 cm/s SFA distal 41 cm/s Popliteal 83 cm/s Posterior tibial 48 cm/s Anterior tibial 60 cm/s Dorsalis pedis 58 cm/s The waveforms are triphasic with diastolic flow. LEFT: Peak systolic velocities are as follows: MIXER AND BLENDER 89 cm/s SFA proximal 70 cm/s SFA mid-portion 95 cm/s SFA distal 82 cm/s Popliteal 107 cm/s Posterior tibial 86 cm/s Anterior tibial 132 cm/s Dorsalis pedis 132 cm/s The waveforms are triphasic with diastolic flow. IMPRESSION: 1. No hemodynamically significant stenosis based on peak systolic velocity criteria.
[2024-07-27 01:00] VITALS: BP 111/69; PULSE 83; RESP 15; TEMP 97.9; O2SAT 93
[2024-07-27] MEDS: POTASSIUM EFFERVESENT TAB 25 MEQ PO ONE (03:24)
[2024-07-27] MEDS: chlordiazePOXIDE HCL 25 MG CAP PO SCH ×2 (03:25→09:25)
[2024-07-27] MEDS: MULTIPLE VITAMIN TAB PO ONE ×2 (03:25→14:22)
[2024-07-27] MEDS ORDERED: LAMO100T44 PO (04:28)
[2024-07-27] MEDS ORDERED: CLON-853 PO (04:28)
[2024-07-27] MEDS ORDERED: SERT-160 PO (04:28)
[2024-07-27] MEDS ORDERED: MET50T PO (04:28)
[2024-07-27] MEDS ORDERED: METH-1181 PO (04:28)
[2024-07-27] MEDS ORDERED: APIX2.5T PO (04:28)
[2024-07-27] MEDS ORDERED: PANT40T PO (04:28)
[2024-07-27] MEDS ORDERED: [UNRECOGNIZED DRUG - CODE] PO (04:28)
[2024-07-27 05:00] VITALS: BP 92/55; PULSE 87; RESP 20; TEMP 97.8; O2SAT 95
[2024-07-27] MEDS ORDERED: MIRT-93 PO (05:49)
[2024-07-27 07:08] LABS: Basophils # (auto) 0 10 ^3/uL (0-0.2); Basophils % (auto) 0.5 % (0.0-2.0); Eosinophils # (auto) 0.2 10 ^3/uL (0-0.8); Eosinophils % (auto) 6.8 % (0.0-7.0); Hematocrit 35.3 % (36.0-46.0); Hemoglobin 11.9 g/dL (12.2-16.2); Lymphocytes # (auto) 1.1 10 ^3/uL (0.4-5.4); Lymphocytes % (auto) 32.3 % (10.0-50.0); Mean Corpuscular Hemoglobin 31.6 pg (28.0-32.0); Mean Corpuscular Hgb Conc. 33.8 g/dL (32.0-36.0); Mean Corpuscular Volume 93.4 fL (80.0-100.0); Monocytes # (auto) 0.4 10 ^3/uL (0-1.3); Monocytes % (auto) 12.8 % (0.0-12.0); Neutrophils # (auto) 1.6 10 ^3/uL (1.6-8.6); Neutrophils % (auto) 47.6 % (37.0-80.0); Platelet Count (auto) 219 10^3/uL (140-450); Red Blood Cells 3.78 10^6/uL (4.0-5.20); Red Cell Distribution Width 12.5 % (11.8-14.3); White Blood Cell 3.4 10^3/uL (4.4-10.8)
[2024-07-27 07:09] LABS: Rapid Influenza A Negative (Negative); Rapid Influenza B Negative (Negative)
[2024-07-27 07:09] LABS: Alanine Aminotransferase 15 U/L (7-40); Albumin 4.1 g/dL (3.2-4.8); Alkaline Phosphatase 73 U/L (46-116); Anion Gap 6 (5-15); Aspartate Aminotransferase 18 U/L (13-40); BUN/Creatinine Ratio 16.9 (10.0-20.0); Blood Urea Nitrogen 12 mg/dL (9-23); Chloride 99 mmol/L (98-107); Glucose 106 mg/dL (74-106); Sodium 140 mmol/L (136-145); Total Protein 6.4 g/dL (5.7-8.2)
[2024-07-27 07:10] LABS: Bilirubin, Total 0.4 mg/dL (0.2-1.0)
[2024-07-27] MEDS: SODIUM CHLOR 0.9% PF (SALINE LOCK) 10ML VIAL/SYR IV SCH (07:15)
[2024-07-27 07:20] LABS: Carbon Dioxide 35 mmol/L (20-31); Potassium 3.5 mmol/L (3.5-5.1)
--- NOTE | 2024-07-27 08:06 | ECG ---
[facility] Test Date: 2024-07-26 Test Time: 17:22:46 Pat Name: SELWYN RAZA Department: er Room: [address] [place] [address] Gender: F Direct Marketing Coordinator: susy : 1955 Requested By: EMERGENCY EMERGENCY Order Number: [id number] Reading MD: Measurements Intervals [place] Rate: 88 P: 60 AK: 163 QRS: 58 QRSD: 92 T: 54 QT: 400 QTc: 484 Interpretive Statements Sinus rhythm Please click the below link to view image of tracing.
[2024-07-27 09:00] VITALS: BP 108/66; PULSE 68; RESP 18; TEMP 97.9; O2SAT 95
[2024-07-27] MEDS: LORazepam 2MG/ML-1ML VIAL IV ONE (09:20)
[2024-07-27] MEDS: chlordiazePOXIDE HCL 25 MG CAP PO ONE (09:20)
[2024-07-27] MEDS ORDERED: APIXABAN 2.5 MG TAB PO SCH (10:00)
[2024-07-27] MEDS ORDERED: FLUT1AER3 PO (10:32)
[2024-07-27] MEDS: METOPROLOL TARTRATE 50 MG TAB PO SCH (11:06)
[2024-07-27] MEDS: FUROSEMIDE 40 MG TAB PO SCH (11:06)
[2024-07-27] MEDS: METHOCARBAMOL 500 MG TAB PO PRN (11:06)
[2024-07-27] MEDS: ENOXAPARIN SOD 40 MG/0.4 ML SYRINGE SC SCH (11:06)
[2024-07-27 12:49] VITALS: BP 91/69; PULSE 76; RESP 16; TEMP 98.5; O2SAT 96
[2024-07-27] MEDS: LORazepam 0.5 MG TAB PO PRN (13:23)
[2024-07-27] MEDS: FOLIC ACID 1 MG TAB PO ONE (14:21)
[2024-07-27] MEDS: D5W/SOD CHL 0.45% 500 ML IV ONE (14:21)
[2024-07-27] MEDS: THIAMINE HCL 100 MG TAB PO ONE (14:22)
[2024-07-27] MEDS: MAGNESIUM OXIDE 400 MG TAB PO ONE (14:22)
[2024-07-27] MEDS ORDERED: FOLIC ACID 1 MG, MULTIPLE VITAMIN 10 ML, MAGNESIUM SULF SDV 50% 8 MEQ, THIAMINE INJ 100... INJ SCH (18:00)
--- NOTE | 2024-07-27 19:19 | DVHDSRES ---
Discharge Summary Date of Admission Resident Creating Document: JANES XIONG RESIDENT Jul 26, 2024 at 23:11 Date of Discharge: Jul 27, 2024 Admitting Diagnosis Alcohol withdrawal Labs/Diagnostic Data: Laboratory Results Test 07/27/24 06:34 07/27/24 00:20 07/27/24 00:00 07/26/24 20:45 White Blood Count 3.4 10^3/uL (4.4-10.8) Red Blood Count 3.78 10^6/uL (4.0-5.20) Hemoglobin 11.9 g/dL (12.2-16.2) Hematocrit 35.3 % (36.0-46.0) Mean Corpuscular Volume 93.4 fL (80.0-100.0) Mean Corpuscular Hemoglobin 31.6 pg (28.0-32.0) Mean Corpuscular Hemoglobin Concent 33.8 g/dL (32.0-36.0) Red Cell Distribution Width 12.5 % (11.8-14.3) Platelet Count 219 10^3/uL (140-450) Mean Platelet Volume 7.5 fL (6.9-10.8) Neutrophils (%) (Auto) 47.6 % (37.0-80.0) Lymphocytes (%) (Auto) 32.3 % (10.0-50.0) Monocytes (%) (Auto) 12.8 % (0.0-12.0) Eosinophils (%) (Auto) 6.8 % (0.0-7.0) Basophils (%) (Auto) 0.5 % (0.0-2.0) Neutrophils # (Auto) 1.6 10 ^3/uL (1.6-8.6) Lymphocytes # (Auto) 1.1 10 ^3/uL (0.4-5.4) Monocytes # (Auto) 0.4 10 ^3/uL (0-1.3) Eosinophils # (Auto) 0.2 10 ^3/uL (0-0.8) Basophils # (Auto) 0 10 ^3/uL (0-0.2) Nucleated Red Blood Cells 0.0 % Sodium Level 140 mmol/L (136-145) Potassium Level 3.5 mmol/L (3.5-5.1) Chloride Level 99 mmol/L (98-107) Carbon Dioxide Level 35 mmol/L (20-31) Anion Gap 6 (5-15) Blood Urea Nitrogen 12 mg/dL (9-23) Creatinine 0.71 mg/dL (0.550-1.02) Glomerular Filtration Rate Calc 93 mL/min (>90) BUN/Creatinine Ratio 16.9 (10.0-20.0) Serum Glucose 106 mg/dL (74-106) Calcium Level 10.0 mg/dL (8.7-10.4) Total Bilirubin 0.4 mg/dL (0.2-1.0) Aspartate Amino Transferase (AST) 18 U/L (13-40) Alanine Aminotransferase (ALT) 15 U/L (7-40) Alkaline Phosphatase 73 U/L (46-116) Total Protein 6.4 g/dL (5.7-8.2) Albumin 4.1 g/dL (3.2-4.8) Lactic Acid Level 1.3 mmol/L (0.4-2.0) Ammonia < 10 umol/L (11-32) Influenza Type A Antigen Negative (Negative) Influenza Type B Antigen Negative (Negative) Prothrombin Time 10.6 sec (9.3-11.8) Prothrombin Time INR 1.00 (0.9-1.15) Activated Partial Thromboplast Time 29.4 SEC (24.5-34.5) Hemoglobin A1c 5.7 % A1C (<5.7) Magnesium Level 1.9 mg/dL (1.6-2.6) Troponin I High Sensitivity 6 ng/L (</=34) B-Type Natriuretic Peptide 20.86 pg/mL (0-100) Thyroid Stimulating Hormone (TSH) 1.87 uIU/mL (0.55-4.78) Salicylates Level < 3.0 mg/dL (-30) Acetaminophen Level 5.0 UG/ML (10.0-20.0) Plasma/Serum Blood Alcohol 3.1 mg/dL (<10) Other Laboratory Tests 07/27/24 06:34 Brief Hx & Hospital Course: HPI- Marc Kaya 68-year-old female with history of HTN, HLD, CHF, COPD, GERD, neuropathy, bipolar, PTSD presents to the ED with the chief complaints of alcohol withdrawal for one day. Patient was reported she has been consuming alcohol and methamphetamines for long time and dried rehabilitation several attempts but unable to quit and she recently discharged from hospital in [place] this morning and was stated to go to a residential rehab facility. But patient did not went and yesterday she had 40 oz of beers 40 and from today morning she has been having headache, anxiety, nausea, vomiting, dizziness, sweating and decided to go to ED until get some help. Patient was reported current that she has no place to go and feeling depressed and hopeless but denies associated are homicidal ideations. Patient was reported her last methamphetamine abuse was one week back. Hospital course-patient came to the hospital due to symptoms of acute alcohol withdrawal like headache, anxiety, vomiting, dizziness, sweating. Patient was admitted to the hospital due to acute alcohol withdrawal. Initial lab workup revealed a potassium 3.1, patient was treated conservatively and was following CIWA protocol. Patient left AMA even after explaining the risk of leaving AMA including life-threatening situation. Patient's condition was undetermined on discharge. Diagnosis- # acute alcohol withdrawal # alcohol abuse disorder # methamphetamine abuse disorder # Hypokalemia replenished # possible PAD-ruled out # bipolar and PTSD # acute vs chronic systolic VS diastolic CHF # COPD likely not in exacerbation # GERD Discharge pain- Patient lives AMA Operations or Procedures [place] [address] Ph: [phone] DIAGNOSTIC IMAGING Diagnostic Imaging Report : [id number] Signed PATIENT: KAYA RAZA ACCT: [id number] UNIT: [id number] : 1955 LOC: OVERFLOW ROOM / BED: [address] [place] [address] / AGE / SEX: 68 / F ADM STATUS: ADM IN SERVICE 2311 ORDERING PHYSICIAN: JANES XIONG RESIDENT PROCEDURE(s): BLEAD - BiLat Low Ext Art Duplex REASON: Possible PAD ORDER NUMBER(s): [id number], ACCESSION NUMBER(s): [id number] Bilateral Lower Extremity Arterial Duplex Clinical History: Possible PAD Comparison: None Technique: Duplex Doppler evaluation including color Doppler and spectral/pulsed waveform analysis of the lower extremity arteries was performed. Findings: RIGHT: Peak systolic velocities are as follows: PRIVATE DUTY AIDE 50 cm/s SFA proximal 74 cm/s SFA mid-portion 60 cm/s SFA distal 41 cm/s Popliteal 83 cm/s Posterior tibial 48 cm/s Anterior tibial 60 cm/s Dorsalis pedis 58 cm/s The waveforms are triphasic with diastolic flow. LEFT: Peak systolic velocities are as follows: PRIVATE DUTY AIDE 89 cm/s SFA proximal 70 cm/s SFA mid-portion 95 cm/s SFA distal 82 cm/s Popliteal 107 cm/s Posterior tibial 86 cm/s Anterior tibial 132 cm/s Dorsalis pedis 132 cm/s The waveforms are triphasic with diastolic flow. IMPRESSION: 1. No hemodynamically significant stenosis based on peak systolic velocity criteria. ATED BY: JOSEPHINE PEÑA MD DICTATED DATE/TIME: 07/27/248 SIGNED BY: JOSEPHINE PEÑA MD SIGNED DATE/TIME: 07/27/248 CC: [place] [address] Ph: [phone] DIAGNOSTIC IMAGING Diagnostic Imaging Report : [id number] Signed PATIENT: KAYA RAZA ACCT: [id number] UNIT: [id number] : 1955 LOC: ER ROOM / BED: / AGE / SEX: 68 / F ADM STATUS: REG ER SERVICE 49 ORDERING PHYSICIAN: BIPIN LI MD PROCEDURE(s): CXR1 - CHEST XRAY 1 VIEW REASON: withdrawal ORDER NUMBER(s): [id number], ACCESSION NUMBER(s): [id number] CHEST RADIOGRAPH Indication: withdrawal Technique: Single frontal view of the chest was obtained Comparison: XY CHEST XRAY 1 VIEW on DOS: 08/11/23 FINDINGS: Lines and Tubes: None Lungs: Increased tissue density right lower lung field. Unchanged from 08/11/2023. This may represent soft tissue density from the right breast. Pleura: No effusion. No pneumothorax. Cardiomediastinal contours: Unremarkable Bones: No acute osseous abnormality. IMPRESSION: 1. No significant change from 08/11/2023 ATED BY: ANTONIA FLOWERS Jr., DO DICTATED DATE/TIME: 07/26/242216 SIGNED BY: ANTONIA FLOWERS Jr., DO SIGNED DATE/TIME: 07/26/24 [id number] CC: Condition at Discharge: Undetermined Final Diagnosis/Problems List # acute alcohol withdrawal # alcohol abuse disorder # methamphetamine abuse disorder # Hypokalemia replenished # possible PAD-ruled out # bipolar and PTSD # acute vs chronic systolic VS diastolic CHF # COPD likely not in exacerbation # GERD Discharge Disposition: AMA Discharge Statement: "Patient was advised to return to the ER or call 911 if any headaches, dizziness, shortness of breath, chest pain, abdominal pain, bleeding, fevers, or worsening of medical condition. Patient was counseled about treatment plan, medications, possible side effects, patientverbalized understanding. All questions were answered to the best of my ability. This discharge took greater then 30 minutes in planning, reviewing documentation, counseling the patient, and discussing with other team members." ASSESSMENT ASSESSMENT Assessment МАРИНА TRINIDAD RESIDENT Jul 27, 2024 19:19
[2024-07-28] MEDS ORDERED: THIAMINE HCL 100 MG TAB PO SCH (10:00)
[2024-07-28] MEDS ORDERED: lamoTRIgine 100 MG TAB PO SCH (10:00)
[2024-07-28] MEDS ORDERED: chlordiazePOXIDE HCL 25 MG CAP PO SCH (10:00)
[2024-07-28] MEDS ORDERED: MULTIPLE VITAMIN TAB PO SCH (10:00)
[2024-07-28] MEDS ORDERED: FOLIC ACID 1 MG TAB PO SCH (10:00)
[2024-07-28] MEDS ORDERED: PANTOPRAZOLE 40 MG TAB PO SCH (10:00)
[2024-07-28] MEDS ORDERED: MAGNESIUM OXIDE 400 MG TAB PO SCH (10:00)
--- NOTE | 2024-07-28 12:27 | DVHSR ---
APPROVED REPORT EXAM: Two-dimensional and M-mode echocardiogram with Doppler and color Doppler. Blood Pressure: 92/55 mmHg INDICATION ?CHF exacerbation RISK FACTORS Height: 5'7", Weight: 149 DIMENSIONS LVDd (3.8-5.7cm)LA (2D)4.0 (1.9-4.0cm)Aortic Root3.3 (2.0-3.7cm) LVDs (2.5-4.0cm)LA (MM) (1.9-4.0cm)Aortic Cusp Exc2.0 (1.5-2.0cm) EF (%) 56.0 (55-70%)Rt. Atrium3.7 (1.9-4.0cm)Asc. Aorta cm IVSd (0.7-1.1cm)RV (D)3.4 (1.8-2.4cm) Mitral Valve MitralMitral Stenosis E wave0.61m/sMV Mean GR.mmHg A wave0.60m/sMV Peak GR.mmHg E/A ratio1.02D MVAcm2 DECEL [id number] 1/2 Timems Aortic Valve Aortic ValveAortic Stenosis V10.87m/Shade Mean GR.4mmHg V21.21m/Shade Peak GR.6mmHg LVOT Diameter2.1 (1.8-2.4cm)Doppler AVA2.49cm2 Pulmonic Valve V20.73m/s Tricuspid Valve TR Velocity2.32m/s [id number] Other Information Technically limited study due to body habitus and implants. Conclusion Sinus rhythm. Left atrial enlargement. Mild aortic root enlargement. Valves are normal. Left ventricular function is sluggish. EF is about 45%. Anterior hypokinesis. Normal RV function. Dopplers unremarkable. No pericardial effusion masses or vegetations.
[2024-07-29] MEDS ORDERED: chlordiazePOXIDE HCL 25 MG CAP PO SCH (07:00)
== END 2024-07-27 15:32 | disposition left against medical advice (07) | DRG 894 ==
LOC: ER 17:12 → EDBD 17:12 → OVERFLOW 23:11
PROVIDERS: ADMIT Student in an Organized Health Care Education/Training Program; ATTEND Student in an Organized Health Care Education/Training Program
DX: F10.239 Alcohol dependence with withdrawal, unspecified (principal); I50.33 Acute on chronic diastolic (congestive) heart failure; Z59.00 Homelessness unspecified; J44.9 Chronic obstructive pulmonary disease, unspecified; F43.10 Post-traumatic stress disorder, unspecified; K21.9 Gastro-esophageal reflux disease without esophagitis; E87.6 Hypokalemia; J44.89 Other specified chronic obstructive pulmonary disease; F17.210 Nicotine dependence, cigarettes, uncomplicated; E78.5 Hyperlipidemia, unspecified; I11.0 Hypertensive heart disease with heart failure; Y90.9 Presence of alcohol in blood, level not specified; F15.10 Other stimulant abuse, uncomplicated; Z53.29 Procedure and treatment not carried out because of patient's decision for other reasons; Z83.3 Family history of diabetes mellitus; Z86.73 Personal history of transient ischemic attack (TIA), and cerebral infarction without residual deficits; Z96.643 Presence of artificial hip joint, bilateral; Z79.899 Other long term (current) drug therapy
CPT/HCPCS: 36415; 71045; 80053; 80320; 80329; 82140; 83036; 83605; 83735; 83880; 84443; 84484; 85025; 85610; 85730; 87804; 93005; 93306; 93925; G0378; J7060